=== PATIENT | female | born 1970 | race Caucasian/White ===

== ENCOUNTER 2017-06-06 13:56 | Emergency (ER) | payer BC, OTHER ==
[2017-06-06 14:10] VITALS: O2SAT 97
--- NOTE | 2017-06-06 16:20 | RAD ---
Left shoulder three views History: Fall. Comparison: None available. Findings: Suggestion of mild cortical irregularity seen at the lateral superior aspect of the greater tuberosity of the proximal humerus which may represent a nondisplaced osseous injury. Clinical correlation and or correlation with MRI may be helpful if clinically indicated. Mild narrowing of the glenohumeral joint space. Moderate degenerative changes at the acromioclavicular joint space with joint space narrowing, subchondral edema, and bony hypertrophy and osteophytosis. Impression: Suggestion of mild cortical irregularity seen at the lateral superior aspect of the greater tuberosity of the proximal humerus which may represent a nondisplaced osseous injury. Clinical correlation and or correlation with MRI may be helpful if clinically indicated. Mild narrowing of the glenohumeral joint space. Moderate degenerative changes at the acromioclavicular joint space with joint space narrowing, subchondral edema, and bony hypertrophy and osteophytosis. If pain persists, consider MRI.
--- NOTE | 2017-06-06 16:28 | C.PDOC ---
History Of Present Illness 47 year old female presents to the ED with complaints of pain in the left shoulder for six days after falling with outstretched left arm. Patient denies any LOC, vomiting, or other complaints at this time. Time Seen by Provider: 06/06/17 14:14 Chief Complaint (Nursing): Upper Extremity Problem/Injury History Per: Patient History/Exam Limitations: no limitations Onset/Duration Of Symptoms: Days (6 days ) Current Symptoms Are (Timing): Still Present Quality: "Pain" Recent travel outside of the [place]: No Past Medical History Reviewed: Historical Data, Nursing Documentation, Vital Signs Vital Signs: Last Vital Signs Temp 98.2 F 06/06/17 16:45 Pulse 68 06/06/17 16:45 Resp 16 06/06/17 16:45 BP 131/98 H 06/06/17 16:45 Pulse Ox 97 06/06/17 17:30 - Medical History PMH: Mitral Valve Prolapse, Peripheral Edema Surgical History: Endoscopy - [facility] Procedures CLOSED BIOPSY OF UTERUS (08/14/14) D & C NEC (08/14/14) UTERINE LES DESTRUCT NEC (08/14/14) Family History: States: Unknown Family Hx - Social History Hx Tobacco Use: No Hx Alcohol Use: No Hx Substance Use: No - Immunization History Hx Tetanus Toxoid Vaccination: No Hx Influenza Vaccination: No Hx Pneumococcal Vaccination: No Review Of Systems Constitutional: Negative for: Fever Cardiovascular: Negative for: Chest Pain Respiratory: Negative for: Shortness of Breath Gastrointestinal: Negative for: Vomiting Musculoskeletal: Positive for: Shoulder Pain (left shoulder pain ) Neurological: Negative for: Weakness, Numbness Physical Exam - Physical Exam Appears: Non-toxic, No Acute Distress Skin: Warm, Dry Head: Atraumatic Eye(s): bilateral: Normal Inspection, PERRL, EOMI Oral Mucosa: Moist Neck: Supple Chest: Symmetrical, No Deformity Cardiovascular: Rhythm Regular Respiratory: Normal Breath Sounds, No Rhonchi, No Wheezing Extremity: Normal ROM (Decreased ROM secondary to pain with full ROM distally. ) , Tenderness (diffuse tenderness in the shoulder), Capillary Refill (good capillary refill, less than two seconds ), No Swelling Pulses: Left Dorsalis Pedis: Normal, Right Dorsalis Pedis: Normal Neurological/Psych: Oriented x3, Normal Motor, Normal Sensation, Normal Reflexes ED Course And Treatment O2 Sat by Pulse Oximetry: 97 (room air ) - Other Rad Left shoulder three views X-Ray: Viewed By Me, Read By Radiologist Interpretation: History: Fall. Comparison: None available. Findings: Suggestion of mild cortical irregularity seen at the lateral superior aspect of the greater tuberosity of the proximal humerus which may represent a nondisplaced osseous injury. Clinical correlation and or correlation with MRI may be helpful if clinically indicated. Mild narrowing of the glenohumeral joint space. Moderate degenerative changes at the acromioclavicular joint space with joint space narrowing, subchondral edema, and bony hypertrophy and osteophytosis. Impression: Suggestion of mild cortical irregularity seen at the lateral superior aspect of the greater tuberosity of the proximal humerus which may represent a nondisplaced osseous injury. Clinical correlation and or correlation with MRI may be helpful if clinically indicated. Mild narrowing of the glenohumeral joint space. Moderate degenerative changes at the acromioclavicular joint space with joint space narrowing, subchondral edema, and bony hypertrophy and osteophytosis. If pain persists, consider MRI. Progress Note: Patient placed in an arm sling and referred to orthopedist for follow up. Disposition - Disposition Referrals: [facility] [Outside] [facility] [Outside] Eder Chamberlain MD [Staff Provider] - Disposition: HOME/ ROUTINE Disposition Time: 16:28 Condition: STABLE Additional Instructions: Follow up with PMD and Orthopedist within 1-2 days. Return to Ed if feel worse. Prescriptions: Ibuprofen [Motrin Tab] 600 mg PO Q8 #30 tab oxyCODONE/Acetaminophen [Percocet 5/325 mg Tab] 1 tab PO QID PRN #20 tab PRN Reason: Pain Instructions: Shoulder Sprain (ED) - Clinical Impression Clinical Impression: Shoulder injury - Scribe Statement The provider has reviewed the documentation as recorded by the Scribe Debora Grigsby All medical record entries made by the Scribe were at my direction and personally dictated by me. I have reviewed the chart and agree that the record accurately reflects my personal performance of the history, physical exam, medical decision making, and the department course for this patient. I have also personally directed, reviewed, and agree with the discharge instructions and disposition.
[2017-06-06 16:50] VITALS: BP 131/98; PULSE 68; RESP 16; TEMP 98.2
== END 2017-06-06 16:48 | disposition home or self-care (01) ==
LOC: C.ER 13:56
DX: S49.92XA Unspecified injury of left shoulder and upper arm, initial encounter (principal); W18.30XA Fall on same level, unspecified, initial encounter